=== PATIENT | female | born 1980 | race Caucasian/White ===

== ENCOUNTER 2017-01-08 17:13 | Inpatient (IN) | payer OTHER ==
[2017-01-08 19:55] VITALS: BMI 30.2
--- NOTE | 2017-01-08 21:31 | HP ---
CIWA Score - CIWA Score Nausea/Vomitin-Int. Nausea w/Dry Heave Muscle Tremors: 3 Anxiety: 4-Mod. Anxious/Guarded Agitation: 4-Moderately Restless Paroxysmal Sweats: 3 Orientation: 0-Oriented Tacttile Disturbances: 1-Very Mild Itch/Numbness Auditory Disturbances: 1-Very Mild Visual Disturbances: 1-Very Mild Sensitivity Headache: 0-None Present CIWA-Ar Total Score: 21 Admission ROS BHS - HPI Chief Complaint: WITHDRAWAL SYMPTOMS Allergies/Adverse Reactions: Allergies Allergy/AdvReac Type Severity Reaction Status Date / Time Sulfa (Sulfonamide AdvReac Verified 01/08/17 21:28 Antibiotics) History of Present Illness: 36 y.o. woman with an extensive history of cocaine and alcohol dependence is here seeking detox. She reports her last detox was 6 years ago for heroin dependence and she has not used heroin since. Exam Limitations: Intoxication - Ebola screening Have you traveled outside of the country in the last 21 days: No (N) Have you had contact with anyone from an Ebola affected area: No Have you been sick,other than usual withdrawal symptoms: No Do you have a fever: No - Review of Systems Constitutional: Night Sweats, Changes in sleep EENT: reports: Tearing Respiratory: reports: No Symptoms reported Cardiac: reports: Lightheadedness GI: reports: Diarrhea, Nausea, Abdominal cramping : reports: No Symptoms Reported Musculoskeletal: reports: Back Pain Integumentary: reports: Other (Scars d/t self-mutiliaton) Neuro: reports: Headache, Numbness (d/t carpal tunnel) Endocrine: reports: No Symptoms Reported Hematology: reports: No Symptoms Reported Psychiatric: reports: Orientated x3, Anxious Other Systems: Reviewed and Negative Patient History - Patient Medical History Hx Anemia: No Hx Asthma: No Hx Chronic Obstructive Pulmonary Disease (COPD): No Hx Cancer: No Hx Cardiac Disorders: No Hx Congestive Heart Failure: No Hx Hypertension: No Hx Hypercholesterolemia: No Hx Pacemaker: No HX Cerebrovascular Accident: No Hx Seizures: No Hx Dementia: No Hx Diabetes: No Hx Gastrointestinal Disorders: No Hx Liver Disease: No Hx Genitourinary Disorders: No Hx Sexually Transmitted Disorders: No Hx Renal Disease (ESRD): No Hx Thyroid Disease: No Hx Human Immunodeficiency Virus (HIV): No Hx Hepatitis C: No Hx Depression: Yes Hx Suicide Attempt: No Hx Bipolar Disorder: No Hx Schizophrenia: No - Patient Surgical History Past Surgical History: Yes Hx Orthopedic Surgery: Yes (Carpal tunnel sx 2015) - PPD History Previous Implant?: No Documented Results: Negative w/o proof PPD to be Administered?: Yes - Reproductive History Patient is a Female of Child Bearing Age (11 -55 yrs old): Yes Last Menstrual Period: 01/04/17 Patient : No - Smoking Cessation Smoking history: Former smoker Have you smoked in the past 12 months: Yes Aproximately how many cigarettes per day: 2 Initiated information on smoking cessation: Yes 'Breaking Loose' booklet given: 01/08/17 - Substance & Tx. History Hx Alcohol Use: Yes Hx Substance Use: Yes Substance Use Type: Alcohol, Cocaine Hx Substance Use Treatment: Yes (Detox for heroin dependence 6 years ago; no rehab ) - Substances Abused Alcohol Route: Oral Frequency: Daily Amount used: 4 pints of liquor Age of first use: 15 Date of Last Use: 01/08/17 Cocaine Route: Inhalation Frequency: 3-6 times per week Amount used: 2 gm Age of first use: 18 Date of Last Use: 01/05/17 Family Disease History - Family Disease History Family Disease History: CA: Father (Colon and liver CA- ) Admission Physical Exam BHS - Vital Signs Vital Signs: Vital Signs - 24 hr 01/08/17 19:50 Temperature 98.2 F Pulse Rate 110 H Respiratory 18 Rate Blood Pressure 137/90 - Physical General Appearance: Yes: Alcohol on Breath, Intoxicated, Tremorous, Irritable, Sweating, Anxious HEENTM: Yes: Hearing grossly Normal, Normal ENT Inspection, Normocephalic, Normal Voice Respiratory: Yes: Lungs Clear, Normal Breath Sounds, No Respiratory Distress, No Accessory Muscle Use Neck: Yes: No masses,lesions,Nodules, Trachea in good position Breast: Yes: Breast Exam Deferred Cardiology: Yes: Regular Rhythm, Tachycardia Abdominal: Yes: Flat, Soft Genitourinary: Yes: Other (No complaints reported) Back: Yes: Normal Inspection Musculoskeletal: Yes: full range of Motion Extremities: Yes: Normal Capillary Refill, Normal Inspection, Normal Range of Motion, Non-Tender Neurological: Yes: Alert, Motor Strength 5/5, Normal Mood/Affect, Normal Response Integumentary: Yes: Normal Color, Warm Lymphatic: Yes: Within Normal Limits - Diagnostic (1) Alcohol dependence with uncomplicated withdrawal Current Visit: Yes Status: Chronic (2) Cocaine dependence, uncomplicated Current Visit: Yes Status: Chronic (3) IBS (irritable bowel syndrome) Current Visit: Yes Status: Chronic Cleared for Admission [facility] - Detox or Rehab [facility] Level of Care: Medically Managed Detox Regimen/Protocol: Librium [facility] Breath Alcohol Content Breath Alcohol Content: 500 Urine Pregancy Test - Result Urine Test Results: Negative- NO Line Present Urine Drug Screen - Results Drug Screen Negative: No Urine Drug Screen Results: EDWIN-Cocaine, BZO-Benzodiazepines, TCA-Tricyclic Antidepress
[2017-01-08] MEDS ORDERED: LOPERAMIDE HCL 2 MG CAPSULE PO PRN (21:47)
[2017-01-08] MEDS ORDERED: guaiFENesin/D-METHORPHAN HB 10 ML UNIT-DOSE CUPS PO PRN (21:47)
[2017-01-08] MEDS ORDERED: IBUPROFEN 400 MG TABLET (FP) PO PRN (21:47)
[2017-01-08] MEDS ORDERED: chlordiazePOXIDE HCL 25 MG CAPSULE PO ONE (21:47)
[2017-01-08] MEDS ORDERED: P-EPHED 60MG/TRIPROLIDI 2.5MG TABLET PO PRN (21:47)
[2017-01-08] MEDS ORDERED: diphenhydrAMINE HCL 50 MG CAPSULE PO PRN (21:47)
[2017-01-08] MEDS ORDERED: MENTHOL/PHENOL 1 EACH UD MM PRN (21:47)
[2017-01-08] MEDS ORDERED: ACETAMINOPHEN 325 MG TABLET (FP) PO PRN (21:47)
[2017-01-08] MEDS: chlordiazePOXIDE HCL 25 MG CAPSULE PO SCH (23:50)
[2017-01-08] MEDS: THIAMINE HCL 100 MG TABLET (FP) PO SCH (23:56)
[2017-01-09] MEDS: chlordiazePOXIDE HCL 25 MG CAPSULE PO SCH ×4 (05:51→22:16)
[2017-01-09] MEDS ORDERED: PRENATAL VITAMINS W/ FOLIC ACID TABLET (FP) PO SCH (10:00)
[2017-01-09 10:25] LABS: MCH 31.6 pg (25.7-33.7); MEAN CELL VOLUME 92.9 fl (80-96); MEAN PLT VOLUME 8.4 fl (7.5-11.1); PLATELET COUNT 238 K/MM3 (134-434); RDW 13.2 % (11.6-15.6); WHITE BLOOD COUNT 9.9 K/mm3 (4.0-10.0)
[2017-01-09] MEDS: hydrOXYzine PAMOATE 50 MG CAPSULE (FP) PO PRN ×2 (11:26→20:14)
--- NOTE | 2017-01-09 11:46 | PN ---
S CIWA - CIWA Score Nausea/Vomitin-No Nausea/No Vomiting Muscle Tremors: 4-Moderate,w/Arms Extend Anxiety: 4-Mod. Anxious/Guarded Agitation: 4-Moderately Restless Paroxysmal Sweats: 3 Orientation: 0-Oriented Tacttile Disturbances: 0-None Auditory Disturbances: 0-None Visual Disturbances: 0-None Headache: 1-Very Mild CIWA-Ar Total Score: 16 BHS Progress Note (SOAP) Subjective: agitation sweats irritable restless interrupted sleep Objective: 01/09/17 11:44 Vital Signs Temperature 97.9 F 01/09/17 10:00 Pulse Rate 82 01/09/17 10:00 Respiratory Rate 18 01/09/17 10:00 Blood Pressure 129/78 01/09/17 10:00 O2 Sat by Pulse Oximetry (%) Laboratory Tests 01/09/17 06:30 WBC 9.9 RBC 4.10 Hgb 13.0 Hct 38.1 MCV 92.9 MCH 31.6 MCHC 34.0 RDW 13.2 Plt Count 238 MPV 8.4 rest of labs pending awake/alert lying in bed no acute distress Assessment: 01/09/17 11:45 withdrawal sx Plan: continue detox increase fluids labs pending
[2017-01-09 12:22] LABS: ALBUMIN 3.7 g/dl (3.4-5.0); ANION GAP 12 (8-16); CALCIUM 8.6 mg/dL (8.5-10.1); CO2 24 mmol/L (21-32); GLUCOSE,RANDOM 81 mg/dL (74-106)
[2017-01-09 12:27] LABS: ALK PHOS 54 U/L (45-117); BILIRUBIN,TOTAL 0.5 mg/dL (0.2-1.0); CREATININE 0.9 mg/dL (0.55-1.02); SGOT/AST 19 U/L (15-37); SGPT/ALT 27 U/L (12-78)
[2017-01-09] MEDS: chlordiazePOXIDE HCL 25 MG CAPSULE PO PRN ×2 (13:52→20:14)
--- NOTE | 2017-01-09 14:06 | EKG ---
Test Reason : Blood Pressure : / mmHG Vent. Rate : 106 BPM Atrial Rate : 106 BPM P-R Int : 124 ms QRS Dur : 068 ms QT Int : 370 ms P-R-T Axes : 044 045 016 degrees QTc Int : 491 ms SINUS TACHYCARDIA NONSPECIFIC ST-T ABNORMALITIES ABNORMAL ECG NO PREVIOUS ECGS AVAILABLE REPEAT EKG IF CLINICALLY INDICATED Confirmed by MARYBEL HEBERT MD ([id number]) on 01/09/2017 2:05:48 PM Referred By: Confirmed By:MARYBEL HEBERT MD
--- NOTE | 2017-01-09 14:34 | CONSULT ---
[facility] Psychiatric Consult - Data Date of interview: 01/09/17 Admission source: [facility] Identifying data: First admission to [facility] for this 36 y/o female from [facility] ancestry who is seeking detox treatment on for alcohol and cocaine dependence.Patient is single without children,domiciled, unemployed and supported by relatives. Substance Abuse History: Discussed in detail with the patient at this interview.Ms Dietrich confirms this report : Smoking Cessation. Smoking history : Former smoker. Have you smoked in the past 12 months: Yes. Aproximately how many cigarettes per day: 2. Initiated information on smoking cessation: Yes. ' Breaking Loose' booklet given: 01/08/17. - Substance & Tx. History. Hx Alcohol Use: Yes. Hx Substance Use: Yes. Substance Use Type: Alcohol, Cocaine. Hx Substance Use Treatment: Yes (Detox for heroin dependence 6 years ago; no rehab ). - Substances Abused. Alcohol. Route: Oral. Frequency: Daily. Amount used: 4 pints of liquor. Age of first use: 15. Date of Last Use : 01/08/17. Cocaine. Route: Inhalation. Frequency: 3-6 times per week. Amount used: 2 gm. Age of first use: 18. Date of Last Use: 01/05/17 Medical History: Consistent with irritable bowel syndrome and a history of orthosurgery for carpal tunnel syndrome (2015). Psychiatric History: Patient denies. Additional Comment: Urine Drug Screen Results: EDWIN-Cocaine, BZO-Benzodiazepines , TCA-Tricyclic Antidepressant.Noted. Mental Status Exam - Mental Status Exam Alert and Oriented to: Time, Place, Person Cognitive Function: Good Patient Appearance: Well Groomed Mood: Apprehensive Affect: Appropriate, Normal Range Patient Behavior: Fatigued, Cooperative (well-mannered) Speech Pattern: Clear Voice Loudness: Normal Thought Process: Intact, Goal Oriented Thought Disorder: Not Present Hallucinations: Denies Suicidal Ideation: Denies Homicidal Ideation: Denies Insight/Judgement: Poor Sleep: Poorly, Difficulty falling asleep Appetite: Good Muscle strength/Tone: Normal Gait/Station: Normal Psychiatric Findings - Problem List ([place] 1, 2,3) (1) Alcohol dependence with uncomplicated withdrawal Current Visit: Yes Status: Acute (2) Cocaine dependence, uncomplicated Current Visit: Yes Status: Acute (3) IBS (irritable bowel syndrome) Current Visit: Yes Status: Chronic (4) Insomnia Current Visit: Yes Status: Acute - Initial Treatment Plan Initial Treatment Plan: Psychoeducation.Detoxification.Ambien 10 mg po hs prn.Patient made aware of potential for parasomnias.She is in agreement with careplan.NO script will be issued at discharge.Observation.
[2017-01-09 16:39] LABS: URINE APPEARANCE SLCLOUDY; URINE BILIRUBIN NEGATIVE (NEGATIVE); URINE BLOOD NEGATIVE (NEGATIVE); URINE COLOR YELLOW; URINE GLUCOSE (UA) NEGATIVE (NEGATIVE); URINE KETONE NEGATIVE (NEGATIVE); URINE LEUK ESTERASE TRACE (NEGATIVE); URINE NITRITE NEGATIVE (NEGATIVE); URINE PROTEIN NEGATIVE (NEGATIVE); URINE UROBILINOGEN NEGATIVE mg/dL (0.2-1.0)
[2017-01-09 17:07] LABS: URINE BACTERIA MANY /hpf (NONE SEEN); URINE MUCUS MANY; URINE RBC 9 /hpf (0-3); URINE WBC 3 /hpf (3-5)
[2017-01-09] MEDS: THIAMINE HCL 100 MG TABLET (FP) PO SCH (22:16)
[2017-01-10] MEDS: chlordiazePOXIDE HCL 25 MG CAPSULE PO SCH (05:25)
[2017-01-10 10:53] VITALS: BP 132/97; PULSE 93; TEMP 97.9
--- NOTE | 2017-01-10 10:56 | PN ---
S Progress Note Note: pt refused to complete detox; pt states I rather be home than stay here, this place makes me anxious. pt was spoken to, to prevent her from signing out but she insisted on leaving.
--- NOTE | 2017-01-10 10:57 | DS ---
[facility] Detox Discharge Summary Admission Date: 01/08/17 Discharge Date: 01/10/17 - History Present History: Alcohol Dependence, Cocaine Dependence - Physical Exam Results Vital Signs: Vital Signs Temperature 97.9 F 01/10/17 10:52 Pulse Rate 93 H 01/10/17 10:52 Respiratory Rate 16 01/10/17 10:52 Blood Pressure 132/97 01/10/17 10:52 O2 Sat by Pulse Oximetry (%) - Treatment Hospital Course: Discharged Condition Good - Medication Discharge Medications: Ambulatory Orders Unobtainable [Unobtainable] 01/08/17 - Diagnosis (1) Alcohol dependence with uncomplicated withdrawal Current Visit: Yes Status: Chronic (2) Cocaine dependence, uncomplicated Current Visit: Yes Status: Chronic (3) Insomnia Current Visit: Yes Status: Acute (4) IBS (irritable bowel syndrome) Current Visit: Yes Status: Chronic Qualifiers: Irritable bowel syndrome type: unspecified Qualified Code(s): K58.9 - Irritable bowel syndrome without diarrhea - AMA Did Patient Leave Against Medical Advice: Yes (d/c to home)
[2017-01-10] MEDS ORDERED: chlordiazePOXIDE 5 MG CAPSULE PO SCH (23:00)
[2017-01-11] MEDS ORDERED: chlordiazePOXIDE HCL 10 MG CAPSULE PO SCH (23:00)
== END 2017-01-10 10:17 | disposition home or self-care (01) | DRG 774 ==
LOC: YASAS 17:13 → Y6N 21:58 → EDBD 21:58 → Y6N 01-09 15:58
PROVIDERS: ADMIT Internal Medicine; ATTEND Surgery
PROC: HZ2ZZZZ Detoxification Services for Substance Abuse Treatment (ICD-10-PCS; principal; 2017-01-08)
DX: F10.230 Alcohol dependence with withdrawal, uncomplicated (principal); F14.20 Cocaine dependence, uncomplicated; G47.00 Insomnia, unspecified; K58.9 Irritable bowel syndrome, unspecified; Z87.891 Personal history of nicotine dependence
CPT/HCPCS: 36415; 80053; 81003; 81015; 85027; 86593; 93005; 93010